=== PATIENT | male | born 1955 | race African-American/Black ===

== ENCOUNTER 2022-10-20 12:56 | Emergency (ER) | payer MEDICARE, SELFPAY ==
[2022-10-20] VITALS (11 sets, daily range): BP systolic 145–172; BP diastolic 84–99; PULSE 65–116; RESP 13–22; TEMP 36.4; O2SAT 96–98
--- NOTE | ~2022-10-20 | XR_ITS ---
EXAMINATION: XR chest 2V DATE: 10/20/2022 13:37 INDICATION: Shortness of breath. Wheezing. Chest tightness. TECHNIQUE: Frontal and lateral views of the chest were obtained. COMPARISON: None. FINDINGS: The chest demonstrates clear lungs without pneumonia, pleural effusion, or pneumothorax. Th e heart size is normal. IMPRESSION: 1. No acute cardiopulmonary disease. Reviewed, dictated and finalized at location A.
--- NOTE | 2022-10-20 13:07 | ECG_ITS ---
Measurements Intervals [place] Rate: 77 P: 58 [place]: 183 QRS: 5 QRSD: 85 T: 41 QT: 353 QTc: 400 Interpretive Statements SINUS RHYTHM NORMAL ECG NO PREVIOUS ECG AVAILABLE FOR COMPARISON Electronically Signed On 10-20-2022 13:28:09 CDT by Bolivar Rea D.O.
[2022-10-20 13:25] LABS: Basophils Absolute Auto 0.1 K/mm3 (0.0-0.1); Basophils Percent Auto 0.8 % (0.2-1.2); Eosinophils Absolute Auto 0.4 K/mm3 (0-0.3); Eosinophils Percent Auto 4.3 % (0-4.4); Hematocrit 41.7 % (42.0-52.0); Hemoglobin 13.1 g/dL (14.0-18.0); Immature Granulocyte Absolute 0.03 K/mm3 (0.00-0.031); Immature Granulocyte Percent A 0.4 % (0-0.5); Lymphocytes Absolute Auto 2.35 K/mm3 (0.9-3.2); Lymphocytes Percent Auto 28.3 % (18.3-44.2); Mean Corpuscular HGB Conc 31.4 g/dl (32-36); Mean Corpuscular Hemoglobin 27.7 pg (26-34); Mean Corpuscular Volume 88.2 fl (80-100); Mean Platelet Volume 9.5 fl (7.4-10.4); Monocytes Absolute Auto 0.9 K/mm3 (0.1-0.6); Monocytes Percent Auto 10.2 % (2.6-8.5); Neutrophils Absolute Auto 4.7 K/mm3 (1.3-6.7); Platelet Count Result 255 k/mm3 (150-375); Red Blood Count 4.73 M/mm3 (4.6-6.20); Red Cell Distribution Width 14.9 % (11.5-14.5); White Blood Count 8.3 K/mm3 (4.5-10.0)
[2022-10-20 13:36] LABS: Alanine Aminotransferase 30 U/L (6-50); Albumin Level 4.3 g/dL (3.5-5.1); Alkaline Phosphatase 69 U/L (38-126); Anion Gap 6 mmol/L (8-16); Aspartate Amino Transferase 31 U/L (17-59); Bilirubin,Total 0.9 mg/dL (0.2-1.3); Blood Urea Nitrogen 18 mg/dL (9-20); Calcium 8.8 mg/dL (8.4-10.2); Carbon Dioxide 25 mmol/L (22-30); Chloride 106 mmol/L (98-107); Estimated Glomerular Filt Rate > 60; Glucose 116 mg/dL (65-110); Potassium 4.2 mmol/L (3.4-5.0); Sodium 137 mmol/L (137-145)
[2022-10-20] MEDS: ALBUTEROL SULFATE NEB 2.5 MG/3 ML INH 15 MG INHALATION ×2 (14:42→16:16)
[2022-10-20] MEDS: IPRATROPIUM BR 0.02% INH SOLN 0.5 MG/2.5 ML VIAL 1.5 MG INHALATION (14:42)
[2022-10-20] MEDS: methylPREDNISolone SOD SUCC 125 MG VIAL IV PUSH (16:27)
--- NOTE | 2022-10-20 17:38 | ED.SOB ---
HPI - SOB/Dyspnea General Chief Complaint: Shortness of Breath/Dyspnea Stated Complaint: SOB Time Seen by Provider: 10/20/22 13:46 History of Present Illness HPI Narrative: Patient is a 67-year-old male who presents ER with shortness of breath. Reports 6 weeks ago he began having wheezing and was placed on prednisone and daily breathing treatments. He had slight improvement. It worsened over the last 3 days. No fevers or chills or sweats. He has cough with audible wheezing without improvement with his nebulizer machine at home or inhaler. Related Data Allergies Allergy/AdvReac Type Severity Reaction Status Date / Time No Known Allergies Allergy Verified 10/20/22 12:57 Review of Systems Review of Systems: All systems reviewed & are unremarkable except as noted in HPI and below Constitutional: Constitutional: Denies chills, Denies fatigue and Denies fever(s) ENT: Denies nasal congestion and Denies sore throat Cardiovascular: Cardiovascular: Denies chest pain, Denies rapid heart rate and Denies radiating jaw, neck or arm pain Respiratory: Respiratory: Reports cough, Reports dyspnea and Reports wheezing Gastrointestinal: Gastrointestinal: Denies abdominal pain, Denies nausea and Denies vomiting PMFSH Past Medical History Medical History (Updated 10/20/22 @ 20:58 by Azeem Hernandez MD) Bronchitis Hypertension Surgical History Surgical History (Updated 10/20/22 @ 20:58 by Azeem Hernandez MD) No pertinent past surgical history Exam Narrative: GENERAL: Well-appearing, morbidly obese, and in no acute distress. HEAD: Normocephalic, atraumatic. EYES: PERRL and EOMI. ENT: Mucous membranes moist. CHEST: Wheezing in all lung forrest with both inspiration and expiration. No respiratory distress. HEART: Regular rate and rhythm. Normal peripheral pulses. ABDOMEN: Soft, nontender, nondistended. EXTREMITIES: Normal range of motion. No edema. SKIN: Warm, dry, no rash. NEURO: Alert and oriented x3. PSYCH: Normal mood and affect. Course Course Emergency Course: Patient has received 2 hour-long nebulizer treatments. Lungs are markedly improved. Will start on steroids for home and also give DuoNeb vials for his home nebulizer treatment. He has an inhaler he can also use. No additional concerns. Discharge. Vital Signs Vital signs: Vital Signs Temperature 97.5 F L 10/20/22 13:02 Pulse Rate 116 H 10/20/22 13:02 Respiratory Rate 18 10/20/22 13:02 Blood Pressure 172/99 H 10/20/22 13:02 Pulse Oximetry 98 10/20/22 13:02 Oxygen Delivery Room Air 10/20/22 13:02 Temperature 97.5 F L 10/20/22 13:02 Pulse Rate 85 10/20/22 17:44 Respiratory Rate 20 10/20/22 17:44 Blood Pressure 156/92 H 10/20/22 17:44 Pulse Oximetry 97 10/20/22 17:44 Oxygen Delivery Room Air 10/20/22 14:37 MDM - SOB/Dyspnea Lab Data 10/20/22 13:17 10/20/22 13:17 Labs: Lab Results 10/20/22 Range/Units 13:17 WBC 8.3 (4.5-10.0) K/mm3 RBC 4.73 (4.6-6.20) M/mm3 Hgb 13.1 L (14.0-18.0) g/dL Hct 41.7 L (42.0-52.0) % MCV 88.2 (80-100) fl MCH 27.7 (26-34) pg MCHC 31.4 L (32-36) g/dl RDW 14.9 H (11.5-14.5) % Plt Count 255 (150-375) k/mm3 MPV 9.5 (7.4-10.4) fl Immature Gran % (Auto) 0.4 (0-0.5) % Neut % (Auto) 56.0 (45.5-73.1) % Lymph % (Auto) 28.3 (18.3-44.2) % [place] % (Auto) 10.2 H (2.6-8.5) % Eos % (Auto) 4.3 (0-4.4) % Baso % (Auto) 0.8 (0.2-1.2) % Lymph # (Auto) 2.35 (0.9-3.2) K/mm3 [place] # (Auto) 0.9 H (0.1-0.6) K/mm3 Eos # (Auto) 0.4 H (0-0.3) K/mm3 Baso # (Auto) 0.1 (0.0-0.1) K/mm3 Abs Immat Gran (auto) 0.03 (0.00-0.031) K/mm3 Absolute Neuts (auto) 4.7 (1.3-6.7) K/mm3 Absolute Nucleated RBC 0.0 (0.0-0.012) K/mm3 Nucleated RBC % 0.0 (0.0-0.2) % Sodium 137 (137-145) mmol/L Potassium 4.2 (3.4-5.0) mmol/L Chloride 106 (98-107) mmol/L Carbon Dioxide 25 (22-30) mmol/L Anion G
== END 2022-10-20 18:14 | disposition home or self-care (01) ==
PROVIDERS: Emergency Provider Emergency Medicine
DX: J40 Bronchitis, not specified as acute or chronic (principal); I10 Essential (primary) hypertension
CPT/HCPCS: 36415; 71046; 80053; 85025; 93005; 94640; 96374; 99284; 99285; J2930

== ENCOUNTER 2023-12-27 16:41 | Emergency (ER) | payer MEDICARE, SELFPAY ==
--- NOTE | ~2023-12-27 | XR_ITS ---
XR chest 2V Ordering provider: Mary Nagel MD History: 68 years Male with . SOB, high BP, 3 stents placed in 2012 . Comparison: October 20, 2022 FINDINGS: MEDIASTINUM: The cardiac silhouette is not enlarged. LUNGS: No infiltrates, effusions or pneumothorax. Slightly prominent markings in the lower lobes. OTHER: No free air under the diaphragm. Degenerative changes of the spine. IMPRESSION: No acute cardiopulmonary pathology Reviewed, dictated and finalized at location A.
--- NOTE | 2023-12-27 16:42 | ECG_ITS ---
Test Date: 2023-12-27 16:46:31 Measurements Intervals [place] Rate: 72 P: 43 NM: 186 QRS: 3 QRSD: 105 T: 21 QT: 378 QTc: 416 Interpretive Statements SINUS RHYTHM LOW QRS VOLTAGE IN PRECORDIAL LEADS BORDERLINE ECG No previous ECG available for comparison Electronically Signed On 12-27-2023 16:52:50 CDT by Bolivar Rea D.O.
--- NOTE | 2023-12-27 16:45 | ED.SOB ---
HPI - SOB/Dyspnea General Chief Complaint: Shortness of Breath/Dyspnea Stated Complaint: HTN Focused HPI: 68-year-old male with history of hypertension, CAD, s/p 3 stent placement, HLD presents to the ED for HTN. Pt states he was in had a GI appointment today where his blood pressure was found to be 190 systolic. He was advised to contact his primary care provider. He states could not get into his PCP until next week so came to the ED for further evaluation. He is reporting shortness of breath. Denies chest pain, headache, vision changes, focal numbness or weakness, lower extremity edema, cough or congestion, fever. Patient takes metoprolol and losartan for hypertension which he states he has been taking as directed. GENERAL: Well-appearing, well-nourished, and in no acute distress. HEAD: Normocephalic, atraumatic. CHEST: Clear to auscultation. ?No respiratory distress. HEART: Regular rate and rhythm.? NEURO: ?Alert and oriented x3. Patient screened in triage and initial orders placed.? ?Additional care and disposition to be based upon?diagnostic testing and treatment. Related Data Home Medications Medication Instructions Recorded Confirmed aspirin 81 mg tablet,delayed 81 mg PO DAILY 12/27/23 release (Adult Aspirin Regimen) losartan 100 mg tablet 100 mg PO DAILY 12/27/23 metoprolol succinate 50 mg 50 mg PO DAILY 12/27/23 tablet,extended release 24 hr Allergies Allergy/AdvReac Type Severity Reaction Status Date / Time No Known Allergies Allergy Verified 12/27/23 16:41 [facility] Past Medical History Medical History (Updated 01/07/24 @ 00:07 by Delia Wakefield PA-C) Bright red blood per rectum Bronchitis COPD (chronic obstructive pulmonary disease) Coronary arteriosclerosis Encounter for screening colonoscopy Hyperlipemia Hypertension Obesity Scrotal mass Surgical History Surgical History No pertinent past surgical history Social History Social History Smoking status: Never smoker Course Vital Signs Vital signs: Vital Signs Temperature 97.8 F 12/27/23 16:56 Pulse Rate 77 12/27/23 16:56 Respiratory Rate 16 12/27/23 16:56 Blood Pressure 194/100 H 12/27/23 16:56 Pulse Oximetry 98 12/27/23 16:56 Oxygen Delivery Room Air 12/27/23 16:56 Temperature 97.8 F 12/27/23 16:56 Pulse Rate 77 12/27/23 16:56 Respiratory Rate 16 12/27/23 16:56 Blood Pressure 186/92 H 12/27/23 18:06 Pulse Oximetry 98 12/27/23 16:56 Oxygen Delivery Room Air 12/27/23 16:56 MDM - SOB/Dyspnea Lab Data 12/27/23 16:58 12/27/23 16:58 Labs: Lab Results 12/27/23 Range/Units 16:58 WBC 10.3 H (4.5-10.0) K/mm3 RBC 5.14 (4.6-6.20) M/mm3 Hgb 14.6 (14.0-18.0) g/dL Hct 45.5 (42.0-52.0) % MCV 88.5 (80-100) fl MCH 28.4 (26-34) pg MCHC 32.1 (32-36) g/dl RDW 14.0 (11.5-14.5) % Plt Count 244 (150-375) k/mm3 MPV 9.5 (7.4-10.4) fl Immature Gran % (Auto) 0.2 (0-0.5) % Neut % (Auto) 62.3 (45.5-73.1) % Lymph % (Auto) 25.5 (18.3-44.2) % [place] % (Auto) 9.9 H (2.6-8.5) % Eos % (Auto) 1.6 (0-4.4) % Baso % (Auto) 0.5 (0.2-1.2) % Lymph # (Auto) 2.62 (0.9-3.2) K/mm3 [place] # (Auto) 1.0 H (0.1-0.6) K/mm3 Eos # (Auto) 0.2 (0-0.3) K/mm3 Baso # (Auto) 0.1 (0.0-0.1) K/mm3 Abs Immat Gran (auto) 0.02 (0.00-0.031) K/mm3 Absolute Neuts (auto) 6.4 (1.3-6.7) K/mm3 Absolute Nucleated RBC 0.000 (0.0-0.012) K/mm3 Nucleated RBC % 0.0 (0.0-0.2) % PT 15.0 H (11.1-14.7) Seconds INR 1.1 APTT 30.4 (22.3-36.8) Seconds Sodium 137 (137-145) mmol/L Potassium 4.4 (3.4-5.0) mmol/L Chloride 102 (98-107) mmol/L Carbon Dioxide 25 (22-30) mmol/L Anion Gap 10 (4-12) mmol/L BUN 18 (9-20) mg/dL Creatinine 1.30 (0.7-1.3) mg/dL Estim Creat Clear Calc 71 ml/min Estimated GFR
[2023-12-27 16:56] VITALS: BP 194/100; PULSE 77; RESP 16; TEMP 36.6; O2SAT 98
[2023-12-27 17:07] LABS: Basophils Absolute Auto 0.1 K/mm3 (0.0-0.1); Basophils Percent Auto 0.5 % (0.2-1.2); Eosinophils Absolute Auto 0.2 K/mm3 (0-0.3); Eosinophils Percent Auto 1.6 % (0-4.4); Hematocrit 45.5 % (42.0-52.0); Hemoglobin 14.6 g/dL (14.0-18.0); Immature Granulocyte Absolute 0.02 K/mm3 (0.00-0.031); Immature Granulocyte Percent A 0.2 % (0-0.5); Lymphocytes Absolute Auto 2.62 K/mm3 (0.9-3.2); Lymphocytes Percent Auto 25.5 % (18.3-44.2); Mean Corpuscular HGB Conc 32.1 g/dl (32-36); Mean Corpuscular Hemoglobin 28.4 pg (26-34); Mean Corpuscular Volume 88.5 fl (80-100); Mean Platelet Volume 9.5 fl (7.4-10.4); Monocytes Percent Auto 9.9 % (2.6-8.5); Neutrophils Absolute Auto 6.4 K/mm3 (1.3-6.7); Neutrophils Percent Auto 62.3 % (45.5-73.1); Platelet Count Result 244 k/mm3 (150-375); Red Blood Count 5.14 M/mm3 (4.6-6.20); White Blood Count 10.3 K/mm3 (4.5-10.0)
[2023-12-27 17:18] LABS: INR 1.1; Partial Thromboplastin Time 30.4 Seconds (22.3-36.8)
[2023-12-27 17:23] LABS: Alanine Aminotransferase 31 U/L (6-50); Albumin Level 4.3 g/dL (3.5-5.1); Alkaline Phosphatase 78 U/L (38-126); Anion Gap 10 mmol/L (4-12); Aspartate Amino Transferase 37 U/L (17-59); Bilirubin,Total 0.8 mg/dL (0.2-1.3); Blood Urea Nitrogen 18 mg/dL (9-20); Calcium 9.2 mg/dL (8.4-10.2); Carbon Dioxide 25 mmol/L (22-30); Chloride 102 mmol/L (98-107); Estimated CRCL calculation 71 ml/min; Estimated Glomerular Filt Rate > 60; Glucose 128 mg/dL (65-110); Potassium 4.4 mmol/L (3.4-5.0); Sodium 137 mmol/L (137-145)
[2023-12-27 17:34] LABS: NT Pro B Type Natriuretic Pept 66 pg/mL (19.9-100); Troponin I 0.026 ng/mL (0.000-0.034)
[2023-12-27 18:06] VITALS: BP 186/92
--- NOTE | 2023-12-27 18:08 | PC.NURSE ---
patient states he is feeling better and is going to leave. patient informed to come back to ED if symptoms get worse
== END 2023-12-27 18:12 | disposition left against medical advice (07) ==
PROVIDERS: Student in an Organized Health Care Education/Training Program; Emergency Provider Physician Assistant; PCP Internal Medicine
DX: I10 Essential (primary) hypertension (principal); R06.02 Shortness of breath; I25.10 Atherosclerotic heart disease of native coronary artery without angina pectoris; J44.9 Chronic obstructive pulmonary disease, unspecified; E78.5 Hyperlipidemia, unspecified; E66.9 Obesity, unspecified; Z68.41 Body mass index [BMI] 40.0-44.9, adult; Z95.5 Presence of coronary angioplasty implant and graft; Z79.899 Other long term (current) drug therapy; Z79.82 Long term (current) use of aspirin; R94.31 Abnormal electrocardiogram [ECG] [EKG]
CPT/HCPCS: 36415; 71046; 80053; 83880; 84484; 85025; 85610; 85730; 93005; 99283

== ENCOUNTER 2023-12-29 08:48 | Outpatient (CLI) | payer MEDICARE, SELFPAY ==
--- NOTE | ~2023-12-29 | US_ITS ---
EXAMINATION: US scrotum doppler DATE: 12/29/2023 09:12 INDICATION: Right scrotal mass TECHNIQUE: Testicular sonogram utilizing grayscale and Doppler COMPARISON: None. FINDINGS: The right testis measures 4.2 x 3.8 x 2.3 cm. The left testis measures 3.9 x 2.4 x 2.2 cm. Symmetric normal grayscale appearance to both testes. There is normal vascular flow to both testes. The right e pididymis is normal with normal vascular flow. Deep to the right testis and epididymis is a dilated s erpiginous structure without internal vascular flow on color Doppler suggesting this represents the d uctus deferens. There is focal dilation of a portion of the duct which measures up to 10 mm in anthony l diameter. This corresponds to the region of concern. The left epididymis is normal with normal vasc ular flow. There is no varicocele or hydrocele. IMPRESSION: 1. Elbow abnormality of concern corresponds to a varicose tubular structure, a portion of which is d ilated to 10 mm in maximal diameter which appears separate from the right testis and epididymis and w hich is without internal vascular flow on color Doppler most likely representing the ductus deferens. Correlate for prior vasectomy or other potential causes of more proximal ductal obstruction. 2. Normal bilateral testes and epididymides. Reviewed, dictated and finalized at location B. IMPRESSION: 1. Elbow abnormality of concern corresponds to a varicose tubular structure, a portion of which is dilated to 10 mm in maximal diameter which appears separat e from the right testis and epididymis and which is without internal vascular f low on color Doppler most likely representing the ductus deferens. Correlate fo r prior vasectomy or other potential causes of more proximal ductal obstruction . 2. Normal bilateral testes and epididymides.
== END 2023-12-29 08:49 | disposition home or self-care (01) ==
LOC: GOSHIMG 08:49
PROVIDERS: PCP Internal Medicine; Visit Provider Internal Medicine
DX: N50.89 Other specified disorders of the male genital organs (principal)
CPT/HCPCS: 76870; 93976